=== PATIENT | male | born 1970 | race Caucasian/White ===

== ENCOUNTER 2025-04-15 10:03 | Inpatient (IN) | payer OTHER ==
[~2025-04-15] VITALS: Ht 185.4 cm; Wt 121.6 kg
[2025-04-15 10:07] VITALS: O2SAT 97
[2025-04-15 11:28] LABS: BASOPHILS % 0.8 % (0.0-2.0); EOSINOPHILS % 2.6 % (0.0-5.0); HEMATOCRIT. 46.6 % (42.0-52.0); HEMOGLOBIN. 15.4 g/dL (14.0-18.0); LYMPHOCYTES % 35.9 % (20.0-50.0); MEAN PLATELET VOLUME 7.6 fl (7.4-10.4); MONOCYTES % 5.5 % (2.0-8.0); NEUTROPHILS % 55.2 % (40.0-76.0); PLATELET 98 x1000/uL (130-400); RED BLOOD CELL COUNT 5.26 mill/uL (4.7-6.1); RED CELL DISTRIBUTION WIDTH 14.5 % (11.6-14.6)
[2025-04-15] MEDS: SODIUM CHLORIDE 0.9% 1,000 ML IV ONE (11:30)
[2025-04-15 11:44] LABS: CREATININE 0.6 mg/dL (0.6-1.3); UREA NITROGEN BLOOD 8 mg/dL (9-23)
[2025-04-15] MEDS ORDERED: ACETAMINOPHEN 325MG TABLET PO PRN (14:15)
[2025-04-15 16:04] VITALS: BP 120/74; PULSE 105; RESP 18; TEMP 35.9176
[2025-04-15 16:10] VITALS: BP 120/74; PULSE 80; RESP 20; TEMP 36.4; O2SAT 98
[2025-04-15] MEDS ORDERED: METF100P3 MC (17:00)
[2025-04-15] MEDS ORDERED: LISI2.5T47 MT (17:00)
[2025-04-15] MEDS ORDERED: LOPHC2 PO (17:00)
[2025-04-15] MEDS ORDERED: LISI2.5T47 PO (17:00)
[2025-04-15] MEDS: MVI, ADULT NO.1 10 ML, FOLIC ACID 1 MG, THIAMINE HCL 100 MG in SODIUM CHLORIDE 0.9% 1,0... IV ONE (17:38)
[2025-04-15 20:00] VITALS: BP 161/81; PULSE 106; RESP 19; TEMP 36.5; O2SAT 92
[2025-04-15] MEDS: ENOXAPARIN 40MG/0.4ML SYR SUBCUT SCH (21:32)
[2025-04-15] MEDS: SODIUM CHLORIDE 0.9% 3ML FLUSH IVF SCH (21:32)
[2025-04-16 00:53] VITALS: BP 130/68; PULSE 102; RESP 20; TEMP 36.8; O2SAT 92
[2025-04-16] MEDS: ONDANSETRON HCL 4MG/2ML INJ IV PRN (03:31)
[2025-04-16 04:00] VITALS: BP 143/75; PULSE 100; RESP 20; TEMP 36.5; O2SAT 94
[2025-04-16 08:08] VITALS: BP 136/86; PULSE 110; RESP 20; TEMP 36.6; O2SAT 96
[2025-04-16 12:12] VITALS: BP 124/72; PULSE 102; RESP 20; TEMP 36.6; O2SAT 96
[2025-04-16] MEDS: MAGNESIUM/ALUMINUM HYDROXIDE/SIMETHICONE 30ML UDC PO PRN (13:45)
[2025-04-16] MEDS: KETOROLAC 30MG/ML VIAL IV PRN (15:12)
[2025-04-16 16:24] VITALS: BP 126/82; PULSE 78; RESP 18; TEMP 36.2; O2SAT 98
[2025-04-16] MEDS: ENOXAPARIN 30MG/0.3ML SYR SUBCUT SCH (17:46)
[2025-04-16 20:00] VITALS: BP 170/90; PULSE 92; RESP 18; TEMP 36.7; O2SAT 94
[2025-04-16] MEDS: CLONIDINE 0.1MG TABLET PO PRN (22:15)
[2025-04-17] VITALS: BP 148/94; PULSE 89; RESP 20; TEMP 36.5; O2SAT 94
[2025-04-17 04:00] VITALS: BP 155/90; PULSE 83; RESP 19; TEMP 37; O2SAT 95
[2025-04-17 08:30] VITALS: BP 164/90; PULSE 85; RESP 18; TEMP 36.6; O2SAT 98
[2025-04-17] MEDS: ACETAMINOPHEN 325MG TABLET PO PRN (09:56)
[2025-04-17] MEDS: SERTRALINE HCL 50MG TABLET PO SCH (09:56)
[2025-04-17] MEDS: CHLORHEXIDINE GLUCONATE 4% EXTERNAL USE TOP SCH (10:00)
[2025-04-17] MEDS: AMLODIPINE 10MG TABLET PO SCH (10:00)
[2025-04-17 12:00] VITALS: BP 145/84; PULSE 72; RESP 20; TEMP 36.6; O2SAT 96
[2025-04-17 16:00] VITALS: BP 129/73; PULSE 79; RESP 18; TEMP 36.3; O2SAT 99
[2025-04-17 20:00] VITALS: BP 149/85; PULSE 82; RESP 18; TEMP 37.2; O2SAT 96
[2025-04-18] VITALS: BP 140/80; PULSE 80; RESP 19; TEMP 36.6; O2SAT 97
[2025-04-18 04:00] VITALS: BP 152/83; PULSE 85; RESP 19; TEMP 37.2; O2SAT 97
[2025-04-18 08:00] VITALS: BP 140/89; PULSE 76; RESP 18; TEMP 36.7; O2SAT 96
[2025-04-18] MEDS: PANTOPRAZOLE SODIUM 40 MG/VIAL IV SCH (10:01)
[2025-04-18] MEDS: THIAMINE HCL 100MG TABLET PO SCH (10:01)
[2025-04-18] MEDS: MULTIVITAMINS,THER W-MINERALS TABLET PO SCH (10:04)
[2025-04-18 12:00] VITALS: BP 154/82; PULSE 89; RESP 18; TEMP 36.6; O2SAT 97
[2025-04-18 16:00] VITALS: BP 155/98; PULSE 96; RESP 20; TEMP 36.3; O2SAT 95
[2025-04-18 20:00] VITALS: BP 138/76; PULSE 97; RESP 19; TEMP 36.3; O2SAT 96
[2025-04-18] MEDS: ZOLPIDEM TARTRATE 5MG TABLET PO PRN (22:50)
[2025-04-19] VITALS: BP 148/84; PULSE 82; RESP 18; TEMP 36.6; O2SAT 96
[2025-04-19 04:00] VITALS: BP 152/81; PULSE 89; RESP 20; TEMP 36.6; O2SAT 97
[2025-04-19 08:00] VITALS: BP 169/96; PULSE 87; RESP 18; TEMP 36.4; O2SAT 97
[2025-04-19 12:00] VITALS: BP 131/83; PULSE 85; RESP 18; TEMP 36.3; O2SAT 98
[2025-04-19 16:00] VITALS: BP 137/82; PULSE 75; RESP 18; TEMP 36.6; O2SAT 98
[2025-04-19 20:00] VITALS: BP 128/82; PULSE 81; RESP 17; TEMP 36.3; O2SAT 99
[2025-04-20] VITALS: BP 128/70; PULSE 79; RESP 19; TEMP 36.3; O2SAT 100
[2025-04-20 04:00] VITALS: BP 136/77; PULSE 71; RESP 19; TEMP 36.8; O2SAT 97
[2025-04-20 08:00] VITALS: BP 143/92; PULSE 78; RESP 19; TEMP 37.1; O2SAT 98
[2025-04-20 12:00] VITALS: BP 133/82; PULSE 89; RESP 19; TEMP 37; O2SAT 98
[2025-04-20] MEDS: BUPROPION HCL 150MG TABLET XL 24HR PO SCH (12:35)
[2025-04-20 16:00] VITALS: BP 123/71; PULSE 83; RESP 19; TEMP 36.7; O2SAT 98
[2025-04-20 20:00] VITALS: BP 138/83; PULSE 87; RESP 18; TEMP 36.6; O2SAT 100
[2025-04-20] MEDS: ZOLPIDEM TARTRATE 5MG TABLET PO PRN (23:18)
[2025-04-21] VITALS: BP 136/92; PULSE 91; RESP 18; TEMP 36.6; O2SAT 100
[2025-04-21 04:00] VITALS: BP 136/93; PULSE 81; RESP 17; TEMP 36.6; O2SAT 100
[2025-04-21 08:00] VITALS: BP 137/88; PULSE 80; RESP 18; TEMP 36.6; O2SAT 99
[2025-04-21 12:00] VITALS: BP 156/90; PULSE 89; RESP 18; TEMP 36.5; O2SAT 100
[2025-04-21 13:40] LABS: CLARITY URINE CLOUDY (CLEAR); COLOR URINE YELLOW (YELLOW); GLUCOSE URINE 1+ (NEGATIVE); PH URINE 7.5 (4.5-8.0); PROTEIN URINE NEGATIVE (NEGATIVE); SPECIFIC GRAVITY URINE 1.015 (1.005-1.030)
[2025-04-21 13:41] LABS: KETONES URINE NEGATIVE (NEGATIVE); LEUKOCYTE ESTERASE URINE NEGATIVE (NEGATIVE); NITRITE URINE NEGATIVE (NEGATIVE); OCCULT BLOOD URINE NEGATIVE (NEGATIVE); UROBILINOGEN URINE 1.0 E.U./dL (0.2-1.0)
[2025-04-21 13:48] LABS: *AMPHETAMINES SCREEN URINE NEGATIVE (NEGATIVE); *BARBITURATES SCREEN URINE NEGATIVE (NEGATIVE); *BENZODIAZEPINES SCREEN URINE NEGATIVE (NEGATIVE); *COCAINE SCREEN URINE NEGATIVE (NEGATIVE); METHADONE URINE SCREEN NEGATIVE (NEGATIVE); OPIATES URINE SCREEN NEGATIVE (NEGATIVE); PHENCYCLIDINE URINE SCREEN NEGATIVE (NEGATIVE)
[2025-04-21 13:49] LABS: CANNABINOID URINE SCREEN NEGATIVE (NEGATIVE); ECSTASY MDMA SCREEN URINE NEGATIVE (NEGATIVE)
[2025-04-21 15:09] LABS: SQUAMOUS EPITHELIAL CELL URINE RARE /lpf (RARE/1+)
[2025-04-21 15:10] LABS: RBC URINE NONE SEEN /hpf (0-2); WBC URINE 0-2 /hpf (0-2)
[2025-04-21 15:11] LABS: BACTERIA URINE 3+; YEAST URINE NONE SEEN
[2025-04-21 16:00] VITALS: BP 137/74; PULSE 87; RESP 19; TEMP 36.6; O2SAT 100
[2025-04-21 20:00] VITALS: BP 141/80; PULSE 86; RESP 20; TEMP 36.6; O2SAT 96
[2025-04-22] VITALS: BP 135/78; PULSE 85; RESP 20; TEMP 36.2; O2SAT 97
[2025-04-22 04:00] VITALS: BP 142/82; PULSE 87; RESP 20; TEMP 36.4; O2SAT 99
[2025-04-22 06:49] LABS: BASOPHILS % 0.5 % (0.0-2.0); EOSINOPHILS % 2.4 % (0.0-5.0); HEMATOCRIT. 37.7 % (42.0-52.0); HEMOGLOBIN. 12.9 g/dL (14.0-18.0); LYMPHOCYTES % 34.3 % (20.0-50.0); MEAN PLATELET VOLUME 8.6 fl (7.4-10.4); MONOCYTES % 11.5 % (2.0-8.0); NEUTROPHILS % 51.3 % (40.0-76.0); PLATELET 67 x1000/uL (130-400); RED BLOOD CELL COUNT 4.30 mill/uL (4.7-6.1); RED CELL DISTRIBUTION WIDTH 15.5 % (11.6-14.6)
[2025-04-22 06:53] LABS: CREATININE 0.6 mg/dL (0.6-1.3); UREA NITROGEN BLOOD 6 mg/dL (9-23)
[2025-04-22 08:00] VITALS: BP 139/90; PULSE 89; RESP 18; TEMP 36.9; O2SAT 98
[2025-04-22 11:26] VITALS: BP 140/89; PULSE 102; RESP 18; TEMP 97.5
[2025-04-22 12:00] VITALS: BP 140/89; PULSE 102; RESP 20; TEMP 36.4; O2SAT 98
== END 2025-04-22 13:57 | DRG 92 ==
LOC: ER 10:03 → 8WST 12:58 → EDBEDREQTM 13:00 → EDBEDREQ 13:00 → ENRESERV 14:32 → 6EST 04-17 08:43
PROVIDERS: ADMIT Internal Medicine; ATTEND Internal Medicine
PROC: GZ56ZZZ Individual Psychotherapy, Supportive (ICD-10-PCS; principal; 2025-04-17)
DX: G92.8 Other toxic encephalopathy (principal); F33.2 Major depressive disorder, recurrent severe without psychotic features; E66.9 Obesity, unspecified; F10.10 Alcohol abuse, uncomplicated; R45.851 Suicidal ideations; Z59.00 Homelessness unspecified; Z68.35 Body mass index [BMI] 35.0-35.9, adult; T51.0X1A Toxic effect of ethanol, accidental (unintentional), initial encounter; Z20.822 Contact with and (suspected) exposure to COVID-19; F43.10 Post-traumatic stress disorder, unspecified; S70.12XA Contusion of left thigh, initial encounter; R21 Rash and other nonspecific skin eruption; Y90.8 Blood alcohol level of 240 mg/100 ml or more; X58.XXXA Exposure to other specified factors, initial encounter; Y93.89 Activity, other specified; Y92.89 Other specified places as the place of occurrence of the external cause; Y99.8 Other external cause status
CPT/HCPCS: 36415; 73502; 73552; 80048; 80305; 80320; 81003; 82962; 85025; 87426; 96360; 99285; A4606; A6449; J1650; J1885; J2405; J2470; J3411; J3490; J7030; G0480